=== PATIENT | female | born 1935 | race Caucasian/White ===

== ENCOUNTER 2024-03-06 13:37 | Inpatient (IN) | payer MEDICARE ==
[~2024-03-06 13:37] MED LIST: Iopamidol-370 76% 500 ML MDV (1 ML CHARGE) ONE
[2024-03-06] MEDS ORDERED: Ondansetron PF 4 MG/2 ML Vial ONE ×2 (14:09→22:55)
[2024-03-06 14:27] LABS: #Basophils 0.06 10x3/uL (0.0-0.2); %Basophils 0.5 % (0.0-1.0); %Eosinophils 2.1 % (0.0-10.0); %Lymphocytes 10.8 % (21.0-51.0); %Monocytes 5.9 % (0.0-10.0); Hematocrit 42.1 % (36.0-47.0); Hemoglobin 12.7 g/dL (12.0-16.0); Mean Corpuscular HGB CONC 30.2 g/dL (32.0-36.0); Mean Corpuscular Hemoglobin 27.6 pg (27.0-31.0); Mean Corpuscular Volume 91.5 fL (78.0-98.0); Mean Platelet Volume 10.4 fL (7.4-10.4); Platelet Count 298 10x3/uL (130-400); RBC Distribution Width 14.6 % (11.5-14.5)
[2024-03-06 14:49] LABS: ALT (SGPT) 72 U/L (8-55); AST (SGOT) 54 U/L (5-34); Albumin 3.4 g/dL (3.4-4.8); Alkaline Phosphatase 78 U/L (40-110); Anion Gap 19 mmol/L (10-20); BUN (Urea Nitrogen) 19 mg/dL (9.8-20.1); Bilirubin, Total 0.4 mg/dL (0.2-1.2); Calc. Creatinine Clearance 0 mL/min (70-130); Calcium 9.1 mg/dL (7.8-10.44); Carbon Dioxide 21 mmol/L (23-31); Chloride 105 mmol/L (98-107); Estimated GFR 62; Globulin 3.5 g/dL (2.4-3.5); Glucose 146 mg/dL (83-110); Potassium 4.1 mmol/L (3.5-5.1); Protein, Total 6.9 g/dL (5.8-8.1); Sodium 141 mmol/L (136-145)
[2024-03-06 15:00] LABS: Troponin I Less than 0.010 ng/mL (< 0.028)
[2024-03-06 17:51] LABS: Lactic Acid 1.5 mmol/L (0.5-2.2)
[2024-03-06] MEDS ORDERED: Ondansetron PF 4 MG/2 ML Vial IVP PRN (20:45)
[2024-03-06] MEDS ORDERED: Ondansetron ODT 4 MG TAB SL PRN (20:45)
[2024-03-06] MEDS ORDERED: hydrALAZINE 20 MG/ML VIAL SLOW IVP PRN (21:00)
[2024-03-06 21:30] LABS: Hematocrit 34.9 % (36.0-47.0); Hemoglobin 10.9 g/dL (12.0-16.0); Platelet Count 202 10x3/uL (130-400)
[2024-03-06] MEDS: Oxymetazoline HCl 0.05% (30 ML BOT) NS SCH (22:24)
[2024-03-06] MEDS ORDERED: EPINEPHrine 1 MG/ML VIAL ONE (22:40)
[2024-03-06] MEDS ORDERED: Lidocaine 1% PF 5 ML VIAL ONE (22:55)
[2024-03-06] MEDS ORDERED: SUGAMMADEX SODIUM 200 MG/2 ML VIAL ONE (22:55)
[2024-03-06] MEDS ORDERED: Ketamine In 0.9 % NaCl 50 MG/5 ML SYRINGE ONE (22:55)
[2024-03-06] MEDS ORDERED: Rocuronium Bromide 10 MG/ML (10ML VIAL) ONE (22:55)
[2024-03-06] MEDS ORDERED: Dexamethasone 4 mg/ml Vial ONE (22:55)
[2024-03-06] MEDS ORDERED: fentaNYL 50 mcg/mL 1 mL Vial ONE (22:55)
[2024-03-06] MEDS ORDERED: SUCCINYLCHOLINE/SOD CL,ISO/PF 200 MG/10 ML SYRINGE FS ONE (22:55)
[2024-03-07] MEDS ORDERED: Labetalol HCl 100 MG/20 ML VIAL ONE (00:12)
[2024-03-07] MEDS: Heparin 10,000 UNITS/ 10 ML VIAL SLOW IVP SCH (01:30)
[2024-03-07] MEDS: Heparin 25,000 units/D5W 500 ML IVPB SCH (01:30)
[2024-03-07 05:27] LABS: #Basophils 0.04 10x3/uL (0.0-0.2); #Eosinphils Less than 0.03 10x3/uL (0.0-0.7); %Basophils 0.3 % (0.0-1.0); %Lymphocytes 4.1 % (21.0-51.0); %Monocytes 3.7 % (0.0-10.0); %Neutrophils 91.2 % (42.0-75.0); Hemoglobin 11.1 g/dL (12.0-16.0); Mean Corpuscular HGB CONC 30.8 g/dL (32.0-36.0); Mean Corpuscular Hemoglobin 27.3 pg (27.0-31.0); Mean Corpuscular Volume 88.5 fL (78.0-98.0); Mean Platelet Volume 10.9 fL (7.4-10.4); Platelet Count 272 10x3/uL (130-400); RBC Distribution Width 14.7 % (11.5-14.5); Red Blood Cell (RBC) Count 4.07 mill/uL (4.20-5.40)
[2024-03-07 05:49] LABS: ALT (SGPT) 72 U/L (8-55); AST (SGOT) 46 U/L (5-34); Albumin 2.9 g/dL (3.4-4.8); Alkaline Phosphatase 60 U/L (40-110); Anion Gap 12 mmol/L (10-20); BUN (Urea Nitrogen) 16 mg/dL (9.8-20.1); Bilirubin, Total 0.4 mg/dL (0.2-1.2); Calc. Creatinine Clearance 67 mL/min (70-130); Calcium 7.9 mg/dL (7.8-10.44); Carbon Dioxide 21 mmol/L (23-31); Chloride 112 mmol/L (98-107); Estimated GFR 80; Globulin 2.9 g/dL (2.4-3.5); Glucose 157 mg/dL (83-110); Potassium 4.3 mmol/L (3.5-5.1); Protein, Total 5.8 g/dL (5.8-8.1); Sodium 141 mmol/L (136-145)
[2024-03-07 05:59] VITALS: BMI 28.3
[2024-03-07 06:08] LABS: PTT 180.6 sec (22.9-36.1)
[2024-03-07] MEDS: Benzocaine/Menthol 1 LOZ LOZ PO PRN (06:57)
[2024-03-07] MEDS: Benzocaine 20% Spray 60 ML CAN PO PRN (06:57)
[2024-03-07] MEDS: Pantoprazole 40 MG VIAL IVP SCH (08:12)
[2024-03-07 08:20] LABS: PTT 158.5 sec (22.9-36.1)
[2024-03-07] MEDS: Scopolamine 1 mg/72 hour Patch TD SCH (16:07)
[2024-03-08 07:45] LABS: #Basophils 0.05 10x3/uL (0.0-0.2); %Basophils 0.4 % (0.0-1.0); %Eosinophils 0.5 % (0.0-10.0); %Lymphocytes 9.2 % (21.0-51.0); %Monocytes 10.7 % (0.0-10.0); %Neutrophils 77.8 % (42.0-75.0); Hematocrit 35.7 % (36.0-47.0); Hemoglobin 11.2 g/dL (12.0-16.0); Mean Corpuscular HGB CONC 31.4 g/dL (32.0-36.0); Mean Corpuscular Hemoglobin 28.4 pg (27.0-31.0); Mean Corpuscular Volume 90.6 fL (78.0-98.0); Mean Platelet Volume 10.5 fL (7.4-10.4); Platelet Count 264 10x3/uL (130-400); RBC Distribution Width 14.7 % (11.5-14.5); Red Blood Cell (RBC) Count 3.94 mill/uL (4.20-5.40)
[2024-03-08 08:01] LABS: ALT (SGPT) 95 U/L (8-55); AST (SGOT) 59 U/L (5-34); Alkaline Phosphatase 76 U/L (40-110); Anion Gap 12 mmol/L (10-20); BUN (Urea Nitrogen) 12 mg/dL (9.8-20.1); Bilirubin, Total 0.8 mg/dL (0.2-1.2); Calc. Creatinine Clearance 65 mL/min (70-130); Calcium 8.2 mg/dL (7.8-10.44); Carbon Dioxide 24 mmol/L (23-31); Chloride 107 mmol/L (98-107); Estimated GFR 83; Globulin 2.9 g/dL (2.4-3.5); Glucose 97 mg/dL (83-110); Potassium 3.6 mmol/L (3.5-5.1); Protein, Total 5.9 g/dL (5.8-8.1); Sodium 139 mmol/L (136-145)
[2024-03-08] MEDS: Lactated Ringer's 1,000 ML IV SCH (09:59)
[2024-03-08 18:01] LABS: PTT 142.4 sec (22.9-36.1)
[2024-03-08 21:04] LABS: Hemoglobin 10.7 g/dL (12.0-16.0); Platelet Count 258 10x3/uL (130-400)
[2024-03-09 06:54] LABS: #Basophils 0.05 10x3/uL (0.0-0.2); #Eosinphils Less than 0.03 10x3/uL (0.0-0.7); %Basophils 0.4 % (0.0-1.0); %Eosinophils 0.2 % (0.0-10.0); %Lymphocytes 13.1 % (21.0-51.0); %Neutrophils 76.7 % (42.0-75.0); Hematocrit 37.8 % (36.0-47.0); Hemoglobin 11.7 g/dL (12.0-16.0); Mean Corpuscular Hemoglobin 22.7 pg (27.0-31.0); Mean Corpuscular Volume 73.4 fL (78.0-98.0); Mean Platelet Volume 8.9 fL (7.4-10.4); Platelet Count 381 10x3/uL (130-400); RBC Distribution Width 19.7 % (11.5-14.5); Red Blood Cell (RBC) Count 5.15 mill/uL (4.20-5.40)
[2024-03-09 08:52] LABS: ALT (SGPT) 30 U/L (8-55); AST (SGOT) 58 U/L (5-34); Albumin 2.5 g/dL (3.4-4.8); Alkaline Phosphatase 141 U/L (40-110); Anion Gap 15 mmol/L (10-20); BUN (Urea Nitrogen) 14 mg/dL (9.8-20.1); Bilirubin, Total 0.9 mg/dL (0.2-1.2); Calc. Creatinine Clearance 67 mL/min (70-130); Calcium 9.2 mg/dL (7.8-10.44); Carbon Dioxide 19 mmol/L (23-31); Chloride 102 mmol/L (98-107); Estimated GFR 84; Globulin 4.2 g/dL (2.4-3.5); Glucose 94 mg/dL (83-110); Potassium 3.6 mmol/L (3.5-5.1); Protein, Total 6.7 g/dL (5.8-8.1); Sodium 132 mmol/L (136-145)
[2024-03-09] MEDS: Apixaban 5 MG TAB PO SCH ×3 (10:30→20:43)
[2024-03-09] MEDS ORDERED: [UNRECOGNIZED DRUG - OTHER] PO PRN (14:01)
[2024-03-09] MEDS ORDERED: VIT C PO PRN (14:01)
[2024-03-09] MEDS ORDERED: PROPOLIS PO PRN (14:01)
[2024-03-09] MEDS ORDERED: Loperamide HCl 2 MG CAP PO PRN ×2 (14:01)
[2024-03-09] MEDS ORDERED: traMADol HCl 50 MG TAB PO PRN (14:01)
[2024-03-09] MEDS ORDERED: VITAMIN A PO PRN (14:01)
[2024-03-09] MEDS ORDERED: ZINC PO PRN (14:01)
[2024-03-09] MEDS ORDERED: Benzocaine/Menthol 1 LOZ LOZ PO PRN (14:15)
[2024-03-09] MEDS ORDERED: Non-Formulary Item 1 EACH (Ibandronate Sodium [Ibandronate Sodium] 150 MG Tablet) PO SCH (14:15)
[2024-03-09] MEDS: Losartan 25 MG TAB PO SCH (20:43)
[2024-03-09] MEDS: Hydroxychloroquine Sulfate 200 MG TAB PO SCH (20:43)
[2024-03-09] MEDS: Memantine 10 MG TAB PO SCH (20:43)
[2024-03-10 04:53] LABS: #Basophils 0.06 10x3/uL (0.0-0.2); %Basophils 0.6 % (0.0-1.0); %Eosinophils 2.9 % (0.0-10.0); %Lymphocytes 11.4 % (21.0-51.0); %Monocytes 13.3 % (0.0-10.0); %Neutrophils 71.1 % (42.0-75.0); Hemoglobin 9.2 g/dL (12.0-16.0); Mean Corpuscular HGB CONC 30.7 g/dL (32.0-36.0); Mean Corpuscular Hemoglobin 27.3 pg (27.0-31.0); Mean Platelet Volume 10.8 fL (7.4-10.4); Platelet Count 221 10x3/uL (130-400); RBC Distribution Width 14.8 % (11.5-14.5); Red Blood Cell (RBC) Count 3.37 mill/uL (4.20-5.40)
[2024-03-10 05:19] LABS: ALT (SGPT) 63 U/L (8-55); AST (SGOT) 29 U/L (5-34); Albumin 2.2 g/dL (3.4-4.8); Alkaline Phosphatase 66 U/L (40-110); Anion Gap 8 mmol/L (10-20); BUN (Urea Nitrogen) 9 mg/dL (9.8-20.1); Bilirubin, Total 0.9 mg/dL (0.2-1.2); Calc. Creatinine Clearance 68 mL/min (70-130); Calcium 7.8 mg/dL (7.8-10.44); Carbon Dioxide 24 mmol/L (23-31); Chloride 109 mmol/L (98-107); Estimated GFR 84; Globulin 2.7 g/dL (2.4-3.5); Glucose 95 mg/dL (83-110); Potassium 3.2 mmol/L (3.5-5.1); Protein, Total 4.9 g/dL (5.8-8.1); Sodium 138 mmol/L (136-145)
[2024-03-10] MEDS: Potassium Chloride 20 MEQ in Premix 1 BAG IVPB SCH (08:03)
[2024-03-10] MEDS: Pantoprazole DR 40 MG TAB PO SCH (08:08)
[2024-03-10] MEDS: Cyanocobalamin (Vitamin B-12) 1,000 MCG TAB PO SCH (08:08)
[2024-03-10] MEDS: predniSONE 5 MG TAB PO SCH (08:09)
[2024-03-10] MEDS: Multivit, Therapeutic 1 TAB PO SCH (08:10)
[2024-03-10] MEDS: Lansoprazole 30 MG/10 ML UDCUP PER TUBE SCH (14:10)
[2024-03-10 14:19] LABS: Hematocrit 30.3 % (36.0-47.0); Hemoglobin 9.5 g/dL (12.0-16.0); Mean Corpuscular HGB CONC 31.4 g/dL (32.0-36.0); Mean Corpuscular Hemoglobin 27.5 pg (27.0-31.0); Mean Corpuscular Volume 87.8 fL (78.0-98.0); Mean Platelet Volume 10.6 fL (7.4-10.4); Platelet Count 254 10x3/uL (130-400); RBC Distribution Width 14.6 % (11.5-14.5); Red Blood Cell (RBC) Count 3.45 mill/uL (4.20-5.40)
[2024-03-10 14:36] LABS: ALT (SGPT) 58 U/L (8-55); AST (SGOT) 27 U/L (5-34); Albumin 2.2 g/dL (3.4-4.8); Alkaline Phosphatase 72 U/L (40-110); Anion Gap 9 mmol/L (10-20); BUN (Urea Nitrogen) 10 mg/dL (9.8-20.1); Bilirubin, Total 0.5 mg/dL (0.2-1.2); Calc. Creatinine Clearance 74 mL/min (70-130); Carbon Dioxide 24 mmol/L (23-31); Chloride 107 mmol/L (98-107); Estimated GFR 86; Glucose 101 mg/dL (83-110); Magnesium 2.1 mg/dL (1.6-2.6); Potassium 3.9 mmol/L (3.5-5.1); Protein, Total 5.2 g/dL (5.8-8.1); Sodium 136 mmol/L (136-145)
[2024-03-11 04:15] LABS: #Basophils 0.03 10x3/uL (0.0-0.2); %Basophils 0.3 % (0.0-1.0); %Eosinophils 4.5 % (0.0-10.0); %Lymphocytes 13.3 % (21.0-51.0); %Monocytes 14.4 % (0.0-10.0); %Neutrophils 66.6 % (42.0-75.0); Hematocrit 29.1 % (36.0-47.0); Hemoglobin 9.1 g/dL (12.0-16.0); Mean Corpuscular HGB CONC 31.3 g/dL (32.0-36.0); Mean Corpuscular Hemoglobin 28.3 pg (27.0-31.0); Mean Corpuscular Volume 90.4 fL (78.0-98.0); Mean Platelet Volume 10.5 fL (7.4-10.4); Platelet Count 269 10x3/uL (130-400); RBC Distribution Width 14.7 % (11.5-14.5); Red Blood Cell (RBC) Count 3.22 mill/uL (4.20-5.40)
[2024-03-11 04:34] LABS: ALT (SGPT) 50 U/L (8-55); AST (SGOT) 20 U/L (5-34); Albumin 2.2 g/dL (3.4-4.8); Alkaline Phosphatase 59 U/L (40-110); Anion Gap 11 mmol/L (10-20); BUN (Urea Nitrogen) 11 mg/dL (9.8-20.1); Bilirubin, Total 0.6 mg/dL (0.2-1.2); Calc. Creatinine Clearance 69 mL/min (70-130); Calcium 8.1 mg/dL (7.8-10.44); Carbon Dioxide 24 mmol/L (23-31); Chloride 105 mmol/L (98-107); Estimated GFR 84; Glucose 109 mg/dL (83-110); Potassium 3.8 mmol/L (3.5-5.1); Protein, Total 5.2 g/dL (5.8-8.1); Sodium 136 mmol/L (136-145)
[2024-03-12] MEDS ORDERED: Lidocaine Viscous Sol 2% 15 ml UD Cup SSP PRN (09:11)
[2024-03-12 17:42] VITALS: BP 155/58; TEMP 97.4
== END 2024-03-12 16:30 | DRG 175 ==
LOC: ERS 13:37 → 2NO 16:42 → IMCU/EMU 21:46 → 2SE 03-08 23:33
PROVIDERS: ADMIT Family Medicine; ATTEND Family Medicine
PROC: 0CCM8ZZ Extirpation of Matter from Pharynx, Via Natural or Artificial Opening Endoscopic (ICD-10-PCS; principal; 2024-03-06)
PROC: 0DJ08ZZ Inspection of Upper Intestinal Tract, Via Natural or Artificial Opening Endoscopic (ICD-10-PCS; 2024-03-06)
PROC: 5A12012 Performance of Cardiac Output, Single, Manual (ICD-10-PCS; 2024-03-06)
DX: I26.99 Other pulmonary embolism without acute cor pulmonale (principal); J96.01 Acute respiratory failure with hypoxia; E87.20 Acidosis, unspecified; M06.9 Rheumatoid arthritis, unspecified; M19.90 Unspecified osteoarthritis, unspecified site; I10 Essential (primary) hypertension; R32 Unspecified urinary incontinence; Z88.0 Allergy status to penicillin; Z88.5 Allergy status to narcotic agent; Z79.899 Other long term (current) drug therapy; Z79.891 Long term (current) use of opiate analgesic; Z86.718 Personal history of other venous thrombosis and embolism; Z90.710 Acquired absence of both cervix and uterus; Z85.118 Personal history of other malignant neoplasm of bronchus and lung
CPT/HCPCS: 36415; 36416; 70491; 71260; 74160; 80053; 83605; 83735; 84484; 85014; 85018; 85025; 85049; 85730; 93005; 94760; C9113; J0171; J1100; J1644; J2405; J3010; J3480; J3490; J7120; J7512; Q9967